=== PATIENT | male | born 1985 | race Caucasian/White ===

== ENCOUNTER 2017-01-13 10:50 | Outpatient (CLI) | payer OTHER ==
[~2017-01-13 10:50] MED LIST: RABE20TA5 PO
== END 2017-01-13 18:59 | disposition home or self-care (01) ==
LOC: SRD 10:50
PROVIDERS: ATTEND Internal Medicine
DX: R07.9 Chest pain, unspecified (principal)
CPT/HCPCS: 71020-TC

== ENCOUNTER 2017-06-17 10:07 | Outpatient (CLI) | payer OTHER | END 2017-06-17 19:05 | disposition home or self-care (01) | LOC: SRD 10:07 | PROVIDERS: ATTEND Internal Medicine | DX: N20.0 Calculus of kidney (principal) | CPT/HCPCS: 74018 ==